=== PATIENT | female | born 1950 | race Caucasian/White ===

== ENCOUNTER → 2018-08-10 09:50 | Outpatient (BNVA) | payer OTHER, SELFPAY | PROVIDERS: Visit Provider Nurse Practitioner Adult Health | DX: G56.01 Carpal tunnel syndrome, right upper limb (principal) | CPT/HCPCS: 99203 ==

== ENCOUNTER → 2018-08-11 08:37 | Outpatient (BNVA) | payer OTHER, SELFPAY | PROVIDERS: Visit Provider Psychiatry & Neurology Neurology | DX: G56.01 Carpal tunnel syndrome, right upper limb (principal) | CPT/HCPCS: 95908 ==

== ENCOUNTER → 2018-08-16 10:35 | Outpatient (BNVA) | payer OTHER, SELFPAY | PROVIDERS: Visit Provider Orthopaedic Surgery | DX: G56.01 Carpal tunnel syndrome, right upper limb (principal); M65.4 Radial styloid tenosynovitis [de Quervain] | CPT/HCPCS: 99201; 99213 ==

== ENCOUNTER 2018-09-11 08:48 | Outpatient (CLI) | payer OTHER, SELFPAY ==
--- NOTE | 2018-09-11 09:55 | W.PREOPHP ---
Date of service: 09/11/18 Assessment and Plan (1) Extensor tenosynovitis of right wrist: Current visit: Yes Status: Acute first dorsal extensor compartment release by dr nicholson on09/13/18.for patient's carpal tunnel syndrome an ECTR will be done anatomy permitting by dr. nicholson on09/13/18,trigger fingers on right little and left long finger will also be released at same operative setting based on dr. nicholson's assesment of extent of triggering on day of surgery. The anatomy surgical procedure and typical follow-up course regarding all the surgical procedures are reviewed with Nurys during her preop visit. The anatomy surgical procedure typical postop course regarding all the surgical procedures are reviewed with the patient and her all questions are answered. (2) Trigger finger of both hands: Current visit: Yes Status: Acute (3) Carpal tunnel syndrome of right wrist: Current visit: Yes Status: Acute History of Present Illness Narrative: nurys is a lhwkl-vpxe-izhnkztf female who recently presented to Dr. Nicholson's office with 3 problems to her right hand then call the office regarding her fourth problem to her left middle finger. Problem #1 is numbness affecting her index long and ring finger that spares her little finger of 1-2 years duration. She has been tried on night bracing but wakes despite the bracing. She has noted problems with dexterity but she is not begun to drop objects at this point in time. Problem #2 is locking of her right little finger especially in the a.m. Problem #3 is radial styloid discomfort that is now improved some with the bracing for her carpal tunnel syndrome. Problem #4 is intermittent locking of her left long finger especially noticeable at night where she has to manually unlock the finger. Pertinent Surgical Information Denies previous medical history of: stroke, TIA, [place], use of sublingual nitroglycerin, GERD, seizures, diabetes, thyroid disease, sleep apnea, liver disease, hepatitis, hematologic disorders Denies previous complications from surgery or anesthesic agents with respect to high fever, prolonged vomiting and difficulty waking up Review of Systems Review of Systems All systems reviewed & are unremarkable except as noted in HPI and below Constitutional Denies fever(s) and Denies headache(s) ENT Denies headache(s) Cardiovascular Denies chest pain, Denies chest pain with activity, Denies palpitations, Denies dyspnea on exertion, Denies orthopnea and Denies paroxysmal nocturnal dyspnea Respiratory Denies dyspnea on exertion and Denies wheezing Gastrointestinal Denies abdominal pain, Denies melena, Denies hematochezia, Denies nausea and Denies vomiting Genitourinary Reports system reviewed and no additional complaints, except as docu, Reports hematuria and Reports urinary frequency Comments: Denies burning sensation with urination Musculoskeletal Reports as per HPI Neurologic Denies headache(s) Psychiatric Denies anxiety and Denies depression Endocrine Denies palpitations Comments: Denies any unplanned weight changes Allergic/Immunologic Denies wheezing PFSH Family History Father Diabetes Medical History Subarachnoid hemorrhage (Chronic) Joint pain (Chronic) Hyperlipidemia (Chronic) Dysphagia (Chronic 09/27/13) Carpal tunnel syndrome of right wrist (Acute 07/18/18) Depressive disorder Social History household members: spouse number of children: 2 pets and animals: Yes (1) pets and animals: dog(s) Smoking/Tobacco Use Status: Former Tobacco Use alcohol intake: never Surgical History Bilateral salpingectomy with oophorectomy (Resolved) Endometrial Biopsy (Resolved) Hysterectomy, Laproscopic (Resolved) Arthroplasty (12/27/14) Colonoscopy - MAC (08/17/17) Meds Home Medications Medication Instructions Recorded Confirmed Type polyethylene glycol 3350 [Miralax] 17 g PO DAILY PRN packet 05/23/14 09/11/18 History btzei-ti-7-kad-bpv-woxvglf-ast 2 ea PO DAILY 12/26/14 09/11/18 History [krill oil] mioasvpr-qbzbn-neu 2-C-D3-yesy 2 ea PO DAILY 07/06/17 09/11/18 History [Itraknpe-Ltvhoq-JJR with vit D] Multivitamin/Iron/Folic Acid 1 ea PO DAILY 07/18/17 09/11/18 History [Centrum Adults Tablet] acetaminophen [Tylenol Arthritis 650 mg PO PRN PRN 07/18/17 09/11/18 History Pain] Turmeric Root Extract [Turmeric] 538 mg PO DAILY 09/21/17 09/11/18 History pravastatin 20 mg PO DAILY #90 tab-cap 04/25/18 09/11/18 Rx diclofenac potassium 50 mg tablet 50 mg PO TID PRN #90 tab 07/28/18 09/11/18 Rx Allergies Allergy/AdvReac Type Severity Reaction Status Date / Time naproxen Allergy Severe Hives Verified 09/11/18 09:53 Sulfa (Sulfonamide Allergy Severe HIVES Verified 09/11/18 09:53 Antibiotics) Exam Const General: cooperative HENNH Throat: posterior oropharynx normal Eyes General: appearance normal, both eyes and all related structures Conjunctivae: conjunctivae normal Sclera: sclerae normal Neck Neck: no JVD Carotids: normal carotid upstroke and no bruits Resp Effort & Inspection: normal respiratory effort and able to speak in complete sentences Auscultation: clear to auscultation bilaterally, no rales, no rhonchi and no wheezes Cardio Rate: regular rate Heart Sounds: S1 normal, S2 normal and no murmurs Bruits: no abdominal aortic bruits Pulses: normal peripheral pulses Other: No pulsatile mass noted with palpation over the abdominal aorta. 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 Right little finger shows obvious triggering and locking. Right radial styloid first dorsal extensor compartment region shows marked point tenderness. Jordin's test is benign today. Exam of left middle finger shows obvious triggering and tenderness to palpation over her volar metacarpal head with occasional locking episode evident.
--- NOTE | 2018-09-11 10:28 | HPE_ITS ---
Date of service: 09/11/18 Assessment and Plan (1) Extensor tenosynovitis of right wrist: Current visit: Yes Status: Acute first dorsal extensor compartment release by dr nicholson on09/13/18. for patient's carpal tunnel syndrome an ECTR will be done anatomy permitting by dr. nicholson on09/13/18,trigger fingers on right little and left long finger will also be released at same operative setting based on dr. nicholson's assesment of extent of triggering on day of surgery. The anatomy surgical procedure and typical follow-up course regarding all the surgical procedures are reviewed with Nurys during her preop visit. The anatomy surgical procedure typical postop course regarding all the surgical procedures are reviewed with the patient and her all questions are answered. (2) Trigger finger of both hands: Current visit: Yes Status: Acute (3) Carpal tunnel syndrome of right wrist: Current visit: Yes Status: Acute History of Present Illness Narrative: nurys is a dkjva-mysj-majntjoo female who recently presented to Dr. Nicholson's office with 3 problems to her right hand then call the office regarding her fourth problem to her left middle finger. Problem #1 is numbness affecting her index long and ring finger that spares her little finger of 1-2 years duration. She has been tried on night bracing but wakes despite the bracing. She has noted problems with dexterity but she is not begun to drop objects at this point in time. Problem #2 is locking of her right little finger especially in the a.m. Problem #3 is radial styloid discomfort that is now improved some with the bracing for her carpal tunnel syndrome. Problem #4 is intermittent locking of her left long finger especially noticeable at night where she has to manually unlock the finger. Pertinent Surgical Information Denies previous medical history of: stroke, TIA, [place], use of sublingual nitroglycerin, GERD, seizures, diabetes, thyroid disease, sleep apnea, liver disease, hepatitis, hematologic disorders Denies previous complications from surgery or anesthesic agents with respect to high fever, prolonged vomiting and difficulty waking up Review of Systems Review of Systems All systems reviewed & are unremarkable except as noted in HPI and below Constitutional Denies fever(s) and Denies headache(s) ENT Denies headache(s) Cardiovascular Denies chest pain, Denies chest pain with activity, Denies palpitations, Denies dyspnea on exertion, Denies orthopnea and Denies paroxysmal nocturnal dyspnea Respiratory Denies dyspnea on exertion and Denies wheezing Gastrointestinal Denies abdominal pain, Denies melena, Denies hematochezia, Denies nausea and Denies vomiting Genitourinary Reports system reviewed and no additional complaints, except as docu, Reports hematuria and Reports urinary frequency Comments: Denies burning sensation with urination Musculoskeletal Reports as per HPI Neurologic Denies headache(s) Psychiatric Denies anxiety and Denies depression Endocrine Denies palpitations Comments: Denies any unplanned weight changes Allergic/Immunologic Denies wheezing PFSH Family History Father Diabetes Medical History Subarachnoid hemorrhage (Chronic) Joint pain (Chronic) Hyperlipidemia (Chronic) Dysphagia (Chronic 09/27/13) Carpal tunnel syndrome of right wrist (Acute 07/18/18) Depressive disorder Social History household members: spouse number of children: 2 pets and animals: Yes (1) pets and animals: dog(s) Smoking/Tobacco Use Status: Former Tobacco Use alcohol intake: never Surgical History Bilateral salpingectomy with oophorectomy (Resolved) Endometrial Biopsy (Resolved) Hysterectomy, Laproscopic (Resolved) Arthroplasty (12/27/14) Colonoscopy - MAC (08/17/17) Meds Home Medications Medication Instructions Recorded Confirmed Type polyethylene glycol 3350 [Miralax] 17 g PO DAILY PRN packet 05/23/14 09/11/18 History nauxy-qc-9-scz-ric-ipfyaim-ast 2 ea PO DAILY 12/26/14 09/11/18 History [krill oil] lrliojum-yswhy-ruo 2-C-D3-yesy 2 ea PO DAILY 07/06/17 09/11/18 History [Ztyykxuc-Ldhibm-TFA with vit D] Multivitamin/Iron/Folic Acid 1 ea PO DAILY 07/18/17 09/11/18 History [Centrum Adults Tablet] acetaminophen [Tylenol Arthritis 650 mg PO PRN PRN 07/18/17 09/11/18 History Pain] Turmeric Root Extract [Turmeric] 538 mg PO DAILY 09/21/17 09/11/18 History pravastatin 20 mg PO DAILY #90 tab-cap 04/25/18 09/11/18 Rx diclofenac potassium 50 mg tablet 50 mg PO TID PRN #90 tab 07/28/18 09/11/18 Rx Allergies Allergy/AdvReac Type Severity Reaction Status Date / Time naproxen Allergy Severe Hives Verified 09/11/18 09:53 Sulfa (Sulfonamide Allergy Severe HIVES Verified 09/11/18 09:53 Antibiotics) Exam Const General: cooperative HENWI Throat: posterior oropharynx normal Eyes General: appearance normal, both eyes and all related structures Conjunctivae: conjunctivae normal Sclera: sclerae normal Neck Neck: no JVD Carotids: normal carotid upstroke and no bruits Resp Effort & Inspection: normal respiratory effort and able to speak in complete sentences Auscultation: clear to auscultation bilaterally, no rales, no rhonchi and no wheezes Cardio Rate: regular rate Heart Sounds: S1 normal, S2 normal and no murmurs Bruits: no abdominal aortic bruits Pulses: normal peripheral pulses Other: No pulsatile mass noted with palpation over the abdominal aorta. 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 Right little finger shows obvious triggering and locking. Right radial styloid first dorsal extensor compartment region shows marked point tenderness. Jordin's test is benign today. Exam of left middle finger shows obvious triggering and tenderness to palpation over her volar metacarpal head with occasional locking episode evident.
== END 2018-09-11 09:08 ==
PROVIDERS: PCP Family Medicine; Visit Provider Orthopaedic Surgery
DX: G56.01 Carpal tunnel syndrome, right upper limb (principal); M65.4 Radial styloid tenosynovitis [de Quervain]; M65.351 Trigger finger, right little finger; M65.332 Trigger finger, left middle finger; Z01.818 Encounter for other preprocedural examination

== ENCOUNTER 2018-09-13 11:00 | Day surgery (SDC) | payer OTHER, SELFPAY ==
[2018-09-11 09:56] VITALS: BP 131/66; PULSE 64; RESP 18; TEMP 37.1; O2SAT 96
[2018-09-13 11:24] VITALS: BP 122/58; PULSE 66; RESP 16; TEMP 37.6; O2SAT 97
[2018-09-13] MEDS: Lactated Ringers 1,000 ML 80 ML IV (12:00)
[2018-09-13] MEDS: Lidocaine 2% Pres-Free 5 ML VIAL (13:57)
--- NOTE | 2018-09-13 14:13 | W.PM.DSUDISC ---
Discharge Plan Disposition Patient Disposition: HOME Condition: Good Discharge Details Reason For Visit: surgery Attending Provider: Ye Garcia Primary Care Provider: Cecilia Maurer Home Meds and New Rx's Prescriptions: New hydrocodone-acetaminophen 5-325 mg tablet 1 tab PO Q6H PRN (Reason: pain) Qty: 10 RF: 0 Continue polyethylene glycol 3350 [Miralax] 17 GM powder in packet 17 g PO DAILY PRN RF: 0 ejgvchhy-xmkhf-kef 2-C-D3-yesy [Yvkemmcj-Gjsfbn-GIX with vit D] 1 EACH tablet 2 ea PO DAILY RF: 0 Turmeric Root Extract [Turmeric] 538 MG capsule 538 mg PO DAILY RF: 0 pravastatin 20 MG tablet 20 mg PO DAILY Qty: 90 RF: 4 diclofenac potassium 50 mg tablet 50 mg PO TID PRN (Reason: pain) Qty: 90 RF: 0 ojgba-ly-7-mxi-dji-rstniid-ast [krill oil] 1 EACH capsule 2 ea PO DAILY RF: 0 acetaminophen [Tylenol Arthritis Pain] 650 MG tablet extended release 650 mg PO PRN PRNRF: 0 Multivitamin/Iron/Folic Acid [Centrum Adults Tablet] 1 EACH tablet 1 ea PO DAILY RF: 0 Discharge Instructions Additional Instructions: Try to elevate R hand above heart level as much as possible for next 24 hours. Bend and straighten fingers of both hands 10 times/hour when awake to prevent swelling. On L hand: remove dressings in 48 hours. May then shower or bathe and get incision wet. Leave uncovered when incision is dry and sealed. On R: Remove splint and all dressings after 5 days. May the shower or bathe and get all incisions wet. May leave all incisions uncovered when they are sealed and dry. Use both hands as much as discomfort allows. Use hydrocodone only for pain that is not relieved by tylenol. Follow up in 's office in 10-14 days. Referrals: Ye Garcia MD [ [facility] STAFF PHYSICIAN] - (f/u in 10-14 days) Equipment/Supplies: Splint Activity:: Activity as Tolerated Diet:: As Tolerated Discharge Orders Discharge Orders: Discharge Order (Routine); Ordered 09/13/18 Ordered By: Ye Garcia DS: Diagnosis Discharge Diagnosis (1) Trigger finger of both hands: Start date: 09/13/18 Start time: 14:14 Status: Acute (2) Extensor tenosynovitis of right wrist: Start date: 09/13/18 Start time: 14:14 Status: Acute (3) Carpal tunnel syndrome of right wrist: Start date: 09/13/18 Start time: 14:14 Status: Acute
[2018-09-13 15:04] VITALS: BP 127/65; PULSE 60; RESP 16; TEMP 36.3; O2SAT 94
--- NOTE | 2018-09-13 21:10 | ROE_ITS ---
DATE OF PROCEDURE: September 13, 2018 PREOPERATIVE DIAGNOSES: #1. Carpal tunnel syndrome, right. #2. De Quervain's tendinitis, right wrist. #3. Trigger right little finger. #4. Trigger left middle finger. POSTOPERATIVE DIAGNOSES: Same. PROCEDURES: #1. Endoscopic carpal tunnel release on the right. #2. Tendon sheath incision at radial styloid for de Quervain's tendinitis on the right. #3. Tendon sheath incision for release of trigger right little finger. #4. Tendon sheath incision for release of trigger left middle finger. SURGEON: Ye Garcia M.D. ANESTHESIA: #1. IV regional for the right-sided procedures. #2. Local infiltration 2% Xylocaine solution and 0.5% Marcaine with epinephrine solution to the left middle finger. INDICATIONS: This is a 67-year-old white female who presents with multiple problems. First, she has carpal tunnel syndrome that has not responded to conservative treatment. The diagnosis has been con firmed with nerve conduction studies. She has not responded to night splinting. Endoscopic carpal t unnel release was recommended for alleviate her symptoms on a permanent basis. The second problem is she was noted to have de Quervain's tendinitis of her right wrist. This has been bothering her for several months. She wished to have the problem corrected at the same time she was having her carpal tunnel release. I told her we could do this. She also has had a several-month history of painful lo cking of her right little finger and left middle finger. She inquired about trigger finger releases under the same operative setting and I agreed to do this. The risks and complications of the procedu re were explained to the patient in detail preoperatively. PROCEDURE: The patient was taken to the Operating Room on 09/13/18. She was placed supine on the op erating table. An IV regional anesthetic was administered to the right upper extremity. Once good a nesthesia was obtained, the right hand, wrist, and forearm were prepped and draped free in the usual sterile fashion. I made a transverse incision beginning over the flexor carpi radialis at the flexor carpi radialis tendon. I extended it to the flexor carpi ulnaris tendon in line with the proximal f lexion crease of the wrist. The incision was carried down into the fascia and subcutaneous veins wer e cauterized. A distally-based fascial flap was then used to gain access to the carpal canal. A syn ovial reflector was then used to free synovium from the underside of the volar carpal ligament and a series of obturators were introduced to make room for the endoscope. The Ginna endoscope blade device was then inserted in the carpal canal and advanced until the distal edge of the volar carpal ligamen t was clearly visualized. At this point the trigger was depressed, elevating the blade, and the elev ator blade was then brought out from distal to proximal through the incision, transecting the volar c arpal ligament and decompressing the median nerve. I then performed a subcutaneous fasciotomy in a p roximal direction from the incision of about 2 inches using Littler scissors. The wound margins were infiltrated with 0.5% Marcaine with epinephrine solution and the skin edges were approximated with t wo horizontal mattress sutures of #4-0 nylon suture material. I then made a longitudinal incision over the first dorsal extensor compartment at the radial styloid. The incision was 2-1/2 inches in length. The incision was carried down to the subcu. Blunt-tipped Littler scissors were then used to mobilize the terminal branches of the superficial radial nerve aw ay from the first dorsal extensor compartment sheath. Under direct vision, I incised the sheath. It was markedly hypertrophies and thickened. There were a couple of areas where the tendons were adher ent to the sheath from scarring. A synovectomy was performed using a rongeur so that the tendons wer e gliding smoothly without any adhesions. Exploring the first dorsal extensor compartment completely showed no separate compartment within the first dorsal extensor compartment. The hypertrophied thic kened sheath of the radial styloid was excised. The wound margins were infiltrated with 0.5% Marcain e with epinephrine solution and the skin edges were approximated with interrupted #4-0 nylon sutures. I made a transverse incision over the proximal everette of the flexor sheath of the right little finger . It was just a few millimeters distal to the distal palmar flexion crease. The incision was about 2 cm. The incision was carried down through the subcu. Blunt-tipped Littler scissors were then used to mobilize the soft tissue away from the flexor sheath. Retractors were inserted and the flexor sh eath proximal everette was clearly visualized. I incised the proximal everetet of the flexor sheath in t he midline and completed the incision the entire length of the proximal everette. The wound margins we re infiltrated with 0.5% Marcaine with epinephrine solution and the skin edges were approximated with a few interrupted #4-0 nylon sutures. Sterile dressings were applied to all three incisions. The i ncisions were dressed with Xeroform gauze, sterile gauze 4x4s, wrapped with a Kerlix bandage, and the n wrapped with a 3-inch Reagan bandage. A commercial cock-up wrist splint was applied over the dressing s. A radial thumb spica splint was applied on the right. The patient's IV regional anesthesia was t hen reversed without complications. Attention was turned to the left hand. I prepped the left hand with chlorhexidine and draped it with sterile towels. I infiltrated over the proximal everette of the left middle finger flexor sheath with 1% xylocaine solution. A transverse incision was made over the proximal everette about 2 cm in length . The incision was carried down through the subcu. Blunt-tipped Littler scissors were then used to mobilize soft tissues away from the proximal everette of the flexor sheath of the left middle finger. Retractors were inserted and then I incised the entire length of the proximal everette under direct vis ion, freeing the flexor tendons. The wound margins were infiltrated with 0.5% Marcaine with epinephr ine solution and the skin edges were approximated with a couple of interrupted #4-0 nylon sutures. T he wound was dressed with Xeroform gauze, sterile gauze 4x4, and then wrapped with a 2-inch Quinn ban dage. The patient was discharged to Recovery in good condition. The patient was discharged home from the Day Surgery Unit when fully recovered from her IV regional a nesthesia. She was given instructions to elevate her right hand above heart level as much as possibl e for the next 24 to 48 hours. She is encouraged to wiggle her fingers of both hands 10 times an steven r while awake to prevent swelling. On her left hand, she may remove her dressings, shower and get he r incision wet after 48 hours. She can leave the incision uncovered when it is dry and sealed. On t he right hand, she is to keep the splint and dressings dry for five days. After five days, she is to remove the splint and the dressings and begin to move her right wrist. She may shower or bathe and get all the incisions on the right hand wet after she removes her dressing in five days. She can missy ve the incisions uncovered when they are dry and sealed. She is given a prescription for swelling an d inflammation of ibuprofen 800 mg p.o. t.i.d. for 10 days. She is given a prescription for breakthr ough pain of hydrocodone/APAP 5 mg/325 mg, 1 tablet every 6 hours as needed. She will follow up in Trung Garcia's office in 10 to 14 days.
== END 2018-09-13 15:46 | disposition home or self-care (01) ==
PROVIDERS: PCP Family Medicine; Visit Provider Orthopaedic Surgery
PROC: 01N54ZZ Release Median Nerve, Percutaneous Endoscopic Approach (ICD-10-PCS; CPT 29848; principal; 2018-09-13 12:45)
PROC: (CPT 25000; 2018-09-13 12:45)
PROC: (CPT 26055; 2018-09-13 12:45)
DX: G56.01 Carpal tunnel syndrome, right upper limb (principal); M65.4 Radial styloid tenosynovitis [de Quervain]; M65.351 Trigger finger, right little finger; M65.332 Trigger finger, left middle finger
CPT/HCPCS: 25000; 26055 ×2; 29848; J0690; J1885; J2250; J3010

== ENCOUNTER → 2018-09-26 10:40 | Outpatient (BNVA) | payer OTHER, SELFPAY | PROVIDERS: PCP Family Medicine; Referring Provider Family Medicine; Visit Provider Orthopaedic Surgery | DX: Z47.89 Encounter for other orthopedic aftercare (principal); G56.01 Carpal tunnel syndrome, right upper limb; M65.4 Radial styloid tenosynovitis [de Quervain]; M65.331 Trigger finger, right middle finger; M65.332 Trigger finger, left middle finger ==

== ENCOUNTER 2018-09-26 12:22 | Outpatient (CLI) | payer OTHER, SELFPAY ==
[2018-09-26 14:13] LABS: ALT 45 U/L (12-78); AST 23 U/L (15-37); Albumin 4.2 g/dL (3.4-5.0); Alkaline Phosphatase 91 U/L (46-116); Anion Gap 9.2 mmol/L (3-11); BUN 18 mg/dL (7-18); Bilirubin, Total 0.4 mg/dL (0.2-1.0); CO2 28.8 mmol/L (21.0-32.0); Calcium 9.5 mg/dL (8.5-10.1); Chloride 100 mmol/L (98-107); Glucose 94 mg/dL (70-100); Potassium 4.6 mmol/L (3.5-5.1); Sodium 138 mmol/L (136-145); Total Protein 7.3 g/dL (6.4-8.2)
== END 2018-09-26 12:42 ==
PROVIDERS: PCP Family Medicine; Visit Provider Family Medicine
DX: E78.5 Hyperlipidemia, unspecified (principal)
CPT/HCPCS: 36415; 80053

== ENCOUNTER 2019-06-21 01:21 | Outpatient (CLI) | payer OTHER, SELFPAY ==
[2019-06-21 13:44] LABS: TSH (W/Ref FT4) 4.42 uIU/mL (0.36-3.74)
[2019-06-21 14:09] LABS: FREE T4 0.79 ng/dL (0.76-1.46)
== END 2019-06-21 01:41 ==
PROVIDERS: PCP Family Medicine; Visit Provider Family Medicine
DX: L65.9 Nonscarring hair loss, unspecified (principal)
CPT/HCPCS: 36415; 84439; 84443

== ENCOUNTER 2019-10-24 02:19 | Outpatient (CLI) | payer OTHER, SELFPAY ==
[2019-10-24 13:26] LABS: Anion Gap 7.4 mmol/L (3-11); BUN 17 mg/dL (7-18); CO2 30.6 mmol/L (21.0-32.0); Calcium 9.1 mg/dL (8.5-10.1); Calculated LDL 140 mg/dL; Chloride 106 mmol/L (98-107); Cholesterol 213 mg/dL (<200); Ferritin 285 ng/mL (8-252); Glucose 95 mg/dL (74-106); HDL Cholesterol 53 mg/dL (40-60); Potassium 5.3 mmol/L (3.5-5.1); Sodium 144 mmol/L (136-145); TSH 4.85 uIU/mL (0.36-3.74); Triglyceride 102 mg/dL (<150)
== END 2019-10-24 02:39 ==
PROVIDERS: PCP Family Medicine; Visit Provider Family Medicine
DX: E78.5 Hyperlipidemia, unspecified (principal); R53.83 Other fatigue; R79.89 Other specified abnormal findings of blood chemistry
CPT/HCPCS: 36415; 80048; 80061; 82728; 84443

== ENCOUNTER 2019-12-05 00:33 | Outpatient (CLI) | payer OTHER, SELFPAY ==
--- NOTE | 2019-12-05 11:07 | DI.MAMMO_ITS ---
EXAM: MG MAMMO SCREENING CLINICAL HISTORY: screening Z12.39. TECHNIQUE: Bilateral full field digital CC and MLO mammographic images were obtained with 3D tomosyn thesis and utilizing computer aided detection (CAD). COMPARISON: Available for comparison. FINDINGS: Masses/Architectural Distortion: None seen. Microcalcifications: No suspicious pleomorphic-type are seen. Skin Thickening/Nipple Retraction: None. IMPRESSION: 1. No significant interval change with no specific features of malignancy noted. 2. Unless there is more urgent need, screening mammography is recommended, as per [employer] guidelines. ACR BI-RAD Category- 1 Negative Breast Density - Category B - Scattered areas of fibroglandular density A negative radiographic report should not delay biopsy if a dominant or clinically suspicious mass is present. Up to ten percent of cancers are not identified on mammography. A negative report may reinforce clinical impression. Adenosis and dense breasts may obscure an underlying neoplasm. False positive reports average 6 to 10%. Patient will receive a letter notifying them of these results.
== END 2019-12-05 00:53 ==
PROVIDERS: PCP Family Medicine; Visit Provider Family Medicine
DX: Z12.31 Encounter for screening mammogram for malignant neoplasm of breast (principal)
CPT/HCPCS: 77063; 77067

== ENCOUNTER 2020-01-10 00:06 | Outpatient (CLI) | payer OTHER, SELFPAY ==
[2020-01-10 14:57] LABS: TSH 1.39 uIU/mL (0.36-3.74)
== END 2020-01-10 00:26 ==
PROVIDERS: PCP Family Medicine; Visit Provider Family Medicine
DX: E03.9 Hypothyroidism, unspecified (principal)
CPT/HCPCS: 36415; 84443

== ENCOUNTER 2020-04-10 04:27 | Outpatient (CLI) | payer OTHER, SELFPAY ==
[2020-04-10 16:03] LABS: TSH (W/Ref FT4) 4.19 uIU/mL (0.36-3.74)
[2020-04-10 18:00] LABS: FREE T4 1.11 ng/dL (0.76-1.46)
[2020-04-11 16:37] LABS: T3, Total 106 ng/dL (97-169)
== END 2020-04-10 04:47 ==
PROVIDERS: PCP Family Medicine; Visit Provider Family Medicine
DX: E03.9 Hypothyroidism, unspecified (principal)
CPT/HCPCS: 36415; 84439; 84443; 84480

== ENCOUNTER 2020-09-30 12:45 | Outpatient (CLI) | payer OTHER, SELFPAY ==
--- NOTE | 2020-09-30 11:15 | DI.RAD_ITS ---
EXAM: XR KNEE LT 3V AP,LAT,KEENAN CLINICAL HISTORY: Left knee pain. TECHNIQUE: 2D digital imaging was performed. COMPARISON: No previous for comparison. FINDINGS: BONES: No acute fracture is present. No bony destructive lesion is seen. JOINTS: The knee is normally aligned. Small joint effusion. Small osteophyte at the posterior patell a. SOFT TISSUE: Normal. IMPRESSION: Mild degenerative changes of the knee. DATA REPOSITORY: RADIATION DOSE DELIVERED:
== END 2020-09-30 13:05 ==
PROVIDERS: PCP Family Medicine; Referring Provider Family Medicine; Visit Provider Student in an Organized Health Care Education/Training Program
DX: M17.12 Unilateral primary osteoarthritis, left knee (principal); M25.562 Pain in left knee; M22.42 Chondromalacia patellae, left knee; M23.92 Unspecified internal derangement of left knee
CPT/HCPCS: 73562; 99203; 99214

== ENCOUNTER 2020-11-18 03:17 | Outpatient (CLI) | payer OTHER, SELFPAY ==
[2020-11-18 12:25] LABS: Calculated LDL 165 mg/dL (<100); Cholesterol 261 mg/dL (<200); HDL Cholesterol 54 mg/dL (40-60); TSH 4.03 uIU/mL (0.36-3.74); Triglyceride 211 mg/dL (<150)
== END 2020-11-18 03:37 ==
PROVIDERS: PCP Family Medicine; Visit Provider Family Medicine
DX: E03.9 Hypothyroidism, unspecified (principal); E78.5 Hyperlipidemia, unspecified
CPT/HCPCS: 36415; 80061; 84443

== ENCOUNTER 2021-01-14 01:22 | Outpatient (CLI) | payer OTHER, SELFPAY ==
--- NOTE | 2021-01-14 11:52 | DI.MAMMO_ITS ---
EXAM: MG MAMMO SCREENING CLINICAL HISTORY: screening,Z12.39. TECHNIQUE: Bilateral full field digital CC and MLO mammographic images were obtained with 3D tomosyn thesis and utilizing computer aided detection (CAD). COMPARISON: Prior mammograms dating back to 2010, the most recent being . FINDINGS: There are no CAD designations. No new significant radiograph findings in left breast. In the right breast 3D MLO imaging there is a lobulated nodule posteriorly seen located approximately 10 centimetres in from the nipple. Unchanged from prior studies and probably benign lymph node. Th ere are no new spiculated masses nor malignant-appearing microcalcification groups in either breast. There is no significant architectural distortion nor skin thickening-retraction. IMPRESSION: Stable benign findings. No radiographic evidence of malignancy. BI-RADS Category 2 - Benign Findings Breast Density - Category B - Scattered areas of fibroglandular density Breast density Category C or D implies that the patient has dense breast tissue. Dense breast tissue can make it harder to find cancer on a mammogram. Dense breast tissue is also associated with an incr eased risk of breast cancer. This information about the result of the mammogram report was provided to the patient to raise their awareness. Use this report when you speak with the patient about their risks for breast cancer, which includes their family history. At that time, you may recommend additional screening tests (Ultrasoun d or MRI) as these tests may add significant information. A negative radiographic report should not delay biopsy if a dominant or clinically suspicious mass is present. Up to ten percent of cancers are not identified on mammography. A negative report may reinforce clinical impression. Adenosis and dense breasts may obscure an underlying neoplasm. False positive reports average 6 to 10%. Patient will receive a letter notifying them of these results.
== END 2021-01-14 01:23 ==
LOC: DI 01:22
PROVIDERS: PCP Family Medicine; Visit Provider Family Medicine
DX: Z12.31 Encounter for screening mammogram for malignant neoplasm of breast (principal)
CPT/HCPCS: 77063; 77067

== ENCOUNTER 2021-06-01 03:07 | Outpatient (CLI) | payer OTHER, SELFPAY ==
[2021-06-01 12:50] LABS: Calculated LDL 97 mg/dL (<100); Cholesterol 164 mg/dL (<200); HDL Cholesterol 57 mg/dL (40-60); TSH 2.81 uIU/mL (0.36-3.74); Triglyceride 50 mg/dL (<150)
== END 2021-06-01 03:08 | disposition home or self-care (01) ==
LOC: LOS 03:07
PROVIDERS: PCP Family Medicine; Visit Provider Family Medicine
DX: E03.9 Hypothyroidism, unspecified (principal); E78.5 Hyperlipidemia, unspecified
CPT/HCPCS: 36415; 80061; 84443

== ENCOUNTER 2021-12-07 02:17 | Outpatient (CLI) | payer MEDICARE, SELFPAY ==
[2021-12-07 12:33] LABS: Calculated LDL 191 mg/dL (<100); Cholesterol 271 mg/dL (<200); HDL Cholesterol 66 mg/dL (40-60); Triglyceride 74 mg/dL (<150)
== END 2021-12-07 02:18 | disposition home or self-care (01) ==
LOC: LBO 02:17
PROVIDERS: PCP Family Medicine; Visit Provider Family Medicine
DX: E78.5 Hyperlipidemia, unspecified (principal)
CPT/HCPCS: 36415; 80061

== ENCOUNTER 2022-01-14 17:59 | Outpatient (REF) | payer MEDICARE, SELFPAY | END 2022-01-14 18:00 | disposition home or self-care (01) | LOC: LBN 17:59 | PROVIDERS: PCP Family Medicine; Visit Provider Nurse Practitioner Family | DX: R39.15 Urgency of urination (principal) | CPT/HCPCS: 87086 ==

== ENCOUNTER 2022-02-11 16:42 | Outpatient (REF) | payer MEDICARE, SELFPAY | END 2022-02-11 16:43 | disposition home or self-care (01) | LOC: LBN 16:42 | PROVIDERS: PCP Family Medicine; Visit Provider Nurse Practitioner Family | DX: N95.2 Postmenopausal atrophic vaginitis (principal) | CPT/HCPCS: 87480; 87510; 87660 ==

== ENCOUNTER 2022-03-02 15:52 | Outpatient (REF) | payer MEDICARE, SELFPAY ==
[2022-03-04 11:27] LABS: COVID-19 RT-PCR UVMMC Result Negative (Negative)
== END 2022-03-02 15:53 | disposition home or self-care (01) ==
LOC: LBN 15:52
PROVIDERS: PCP Family Medicine; Visit Provider Family Medicine
DX: Z20.822 Contact with and (suspected) exposure to COVID-19 (principal); R09.81 Nasal congestion
CPT/HCPCS: U0003; U0005

== ENCOUNTER 2022-03-22 02:04 | Outpatient (CLI) | payer MEDICARE, SELFPAY | END 2022-03-22 02:05 | disposition home or self-care (01) | LOC: LBO 02:04 | PROVIDERS: PCP Student in an Organized Health Care Education/Training Program; Visit Provider Family Medicine ==

== ENCOUNTER 2022-03-25 03:34 | Outpatient (CLI) | payer MEDICARE, SELFPAY ==
[2022-03-25 13:02] LABS: ALT 26 U/L (14-59); AST 14 U/L (15-37); Albumin 3.9 g/dL (3.4-5.0); Alkaline Phosphatase 86 U/L (46-116); Anion Gap 4.6 mmol/L (3-11); BUN 15 mg/dL (7-18); Bilirubin, Total 0.4 mg/dL (0.2-1.0); CO2 30.4 mmol/L (21.0-32.0); CREATININE 0.4 mg/dL (0.55-1.02); Chloride 104 mmol/L (98-107); Creatine Kinase 76 U/L (26-192); Glucose 96 mg/dL (74-106); Potassium 4.3 mmol/L (3.5-5.1); Sodium 139 mmol/L (136-145); Total Protein 6.8 g/dL (6.4-8.2)
[2022-03-25 13:26] LABS: Calculated LDL 191 mg/dL (<100); Cholesterol 284 mg/dL (<200); HDL Cholesterol 51 mg/dL (40-60); Triglyceride 214 mg/dL (<150)
== END 2022-03-25 03:35 | disposition home or self-care (01) ==
LOC: LOS 03:34
PROVIDERS: PCP Student in an Organized Health Care Education/Training Program; Visit Provider Family Medicine
DX: I10 Essential (primary) hypertension (principal); E78.5 Hyperlipidemia, unspecified
CPT/HCPCS: 36415; 80053; 80061; 82550

== ENCOUNTER → 2022-04-23 02:00 | Outpatient (CLI) | payer MEDICARE, SELFPAY | PROVIDERS: PCP Student in an Organized Health Care Education/Training Program; Visit Provider Family Medicine ==

== ENCOUNTER 2022-07-30 01:42 | Outpatient (CLI) | payer MEDICARE, SELFPAY ==
[2022-07-30 12:50] LABS: Anion Gap 6.3 mmol/L (3-11); BUN 13 mg/dL (7-18); CO2 30.7 mmol/L (21.0-32.0); CREATININE 0.6 mg/dL (0.55-1.02); Calcium 8.7 mg/dL (8.5-10.1); Calculated LDL 192 mg/dL (<100); Chloride 104 mmol/L (98-107); Cholesterol 280 mg/dL (<200); Glucose 91 mg/dL (74-106); HDL Cholesterol 54 mg/dL (40-60); Potassium 4.2 mmol/L (3.5-5.1); Sodium 141 mmol/L (136-145); Triglyceride 170 mg/dL (<150)
[2022-07-30 13:08] LABS: FREE T4 0.77 ng/dL (0.76-1.46)
== END 2022-07-30 01:43 | disposition home or self-care (01) ==
LOC: LBO 01:42
PROVIDERS: PCP Student in an Organized Health Care Education/Training Program; Visit Provider Student in an Organized Health Care Education/Training Program
DX: F19.90 Other psychoactive substance use, unspecified, uncomplicated (principal); R79.89 Other specified abnormal findings of blood chemistry; E78.5 Hyperlipidemia, unspecified
CPT/HCPCS: 36415; 80048; 80061; 84439; 84443

== ENCOUNTER → 2022-07-30 15:20 | Outpatient (CLI) | payer MEDICARE, SELFPAY ==
--- NOTE | 2022-07-30 11:45 | DI.RAD_ITS ---
Exam(s) XR SACRUM COCCYX EXAM: XR SACRUM COCCYX CLINICAL HISTORY: evaluate pain, coccyx, r/o bony path, FALL, W19.XXXA, M54.9. TECHNIQUE: 2D digital imaging was performed. Three images were obtained. COMPARISON: No exams were available for comparison FINDINGS: BONES: No acute fracture is present. No bony destructive lesion is seen. JOINTS: No dislocation present. SOFT TISSUE: Normal. IMPRESSION: There is no acute fracture or dislocation. DATA REPOSITORY: RADIATION DOSE DELIVERED:
--- NOTE | 2022-07-30 11:52 | DI.RAD_ITS ---
Exam(s) XR LUMBAR SPINE COMPLETE EXAM: XR LUMBAR SPINE COMPLETE CLINICAL HISTORY: evaluate curvature, r/o bony path, post fall, LOWER BACK PAIN, W19.XXXA,. TECHNIQUE: 2D digital imaging was performed of the lumbar spine. Four images were obtained. AP, la teral, right oblique, and left oblique views were obtained. COMPARISON: No previous for comparison. FINDINGS: BONES: No fracture or destructive lesion. Vertebral bodies are unremarkable. Degenerative changes of the facets are seen at L5-S1. DISKS: There is disc space narrowing at L2-L3. ALIGNMENT: There is a right convex curvature of the spine. There is grade 1 pseudo spondylolisthesis of L4 on L5. No spondylolysis. SOFT TISSUE: There is a large amount of stool in the colon. This may represent constipation. IMPRESSION: 1. Mild degenerative changes in the lumbar spine. 2. No acute fracture or subluxation in the lumbar spine. DATA REPOSITORY: RADIATION DOSE DELIVERED:
== END ==
PROVIDERS: PCP Student in an Organized Health Care Education/Training Program; Visit Provider Student in an Organized Health Care Education/Training Program
DX: M47.816 Spondylosis without myelopathy or radiculopathy, lumbar region (principal); W19.XXXA Unspecified fall, initial encounter
CPT/HCPCS: 72110; 72220

== ENCOUNTER 2022-12-31 00:42 | Outpatient (CLI) | payer MEDICARE, SELFPAY ==
--- NOTE | 2022-12-31 07:45 | DI.DEXA_ITS ---
Exam(s) XR DEXA BONE DENSITY W/WO ROBI EXAM: XR DEXA BONE DENSITY W/WO ROBI CLINICAL HISTORY: smoker,screening for osteoporosis in postmenopausal woman,z78.0 TECHNIQUE: COMPARISON: No exams were available for comparison FINDINGS: Lateral Spine Image: Unremarkable. No compression deformities identified. Left hip: Total T-Score: -0.8 Total Z-Score: 0.7 T- and Z-scores: Within normal limits. Lumbar Spine: Total T-Score: 0.3 Total Z-Score: 2.5 T- and Z-scores: Within normal limits. IMPRESSION: No evidence of osteoporosis.
== END 2022-12-31 01:02 ==
LOC: DI 00:44
PROVIDERS: PCP Student in an Organized Health Care Education/Training Program; Visit Provider Student in an Organized Health Care Education/Training Program
DX: Z78.0 Asymptomatic menopausal state (principal); Z13.820 Encounter for screening for osteoporosis; Z87.891 Personal history of nicotine dependence
CPT/HCPCS: 77080

== ENCOUNTER 2023-03-09 03:02 | Outpatient (CLI) | payer MEDICARE, SELFPAY ==
[2023-03-09 14:06] LABS: FREE T4 0.72 ng/dL (0.76-1.46)
[2023-03-13 19:02] LABS: Lab Add On Test DONE
[2023-03-14 17:29] LABS: T3, Total 105 ng/dL (97-169)
== END 2023-03-09 03:03 | disposition home or self-care (01) ==
LOC: LBO 03:02
PROVIDERS: Absent Provider Student in an Organized Health Care Education/Training Program; PCP Student in an Organized Health Care Education/Training Program; Visit Provider Student in an Organized Health Care Education/Training Program
DX: E03.9 Hypothyroidism, unspecified (principal)
CPT/HCPCS: 36415; 84439; 84443; 84480

== ENCOUNTER 2023-09-16 01:56 | Outpatient (CLI) | payer MEDICARE, SELFPAY ==
[2023-09-16 12:12] LABS: HCT 39.2 % (36.0-46.0); HGB 12.9 g/dL (11.2-15.7); MCH 29.8 pg (27.0-33.0); MCHC 32.9 % (32.0-36.0); MCV 91 fL (80-95); MPV 10.8 fL (8.0-11.0); Platelet Count 320 10^3/uL (130-400); RBC 4.33 10^6/uL (3.93-5.22); RDW 13.9 % (11.7-14.6); RDW-SD 46.5 fL; WBC 4.63 10^3/uL (4.4-10.8)
[2023-09-16 12:32] LABS: ALT 27 U/L (14-59); AST 15 U/L (15-37); Alkaline Phosphatase 85 U/L (46-116); Anion Gap 7.6 mmol/L (3-11); BUN 11 mg/dL (7-18); Bilirubin, Total 0.3 mg/dL (0.2-1.0); CO2 28.4 mmol/L (21.0-32.0); CREATININE 0.7 mg/dL (0.55-1.02); Calculated LDL 182 mg/dL (<100); Chloride 106 mmol/L (98-107); Cholesterol 287 mg/dL (<200); Estimated GFR 92.98 (mL/min/1.73m2); Glucose 98 mg/dL (74-106); HDL Cholesterol 46 mg/dL (40-60); Potassium 4.2 mmol/L (3.5-5.1); Sodium 142 mmol/L (136-145); Total Protein 7.3 g/dL (6.4-8.2); Triglyceride 296 mg/dL (<150)
[2023-09-16 12:45] LABS: Vitamin D 25 Total 43.6 ng/mL (30-100)
== END 2023-09-16 01:57 | disposition home or self-care (01) ==
LOC: LOS 01:56
PROVIDERS: PCP Student in an Organized Health Care Education/Training Program; Visit Provider Student in an Organized Health Care Education/Training Program
DX: E03.9 Hypothyroidism, unspecified (principal); Z13.220 Encounter for screening for lipoid disorders; Z13.1 Encounter for screening for diabetes mellitus; Z91.89 Other specified personal risk factors, not elsewhere classified; Z86.2 Personal history of diseases of the blood and blood-forming organs and certain disorders involving the immune mechanism; M81.0 Age-related osteoporosis without current pathological fracture
CPT/HCPCS: 36415; 80053; 80061; 82306; 85027; 84439; 84443

== ENCOUNTER 2023-12-21 04:22 | Outpatient (CLI) | payer MEDICARE, SELFPAY ==
[2023-12-21 13:16] LABS: Calculated LDL 194 mg/dL (<100); Cholesterol 278 mg/dL (<200); HDL Cholesterol 55 mg/dL (40-60); Triglyceride 145 mg/dL (<150)
== END 2023-12-21 04:23 | disposition home or self-care (01) ==
LOC: LBO 04:22
PROVIDERS: PCP Student in an Organized Health Care Education/Training Program; Visit Provider Student in an Organized Health Care Education/Training Program
DX: E78.1 Pure hyperglyceridemia (principal); Z86.73 Personal history of transient ischemic attack (TIA), and cerebral infarction without residual deficits
CPT/HCPCS: 36415; 80061

== ENCOUNTER 2025-03-14 02:20 | Outpatient (CLI) | payer MEDICARE, SELFPAY ==
[2025-03-14 12:15] LABS: Anion Gap 8.6 mmol/L (3-11); BUN 13 mg/dL (7-18); CO2 29.4 mmol/L (21.0-32.0); CREATININE 0.7 mg/dL (0.55-1.02); Calcium 9.1 mg/dL (8.5-10.1); Chloride 105 mmol/L (98-107); Estimated GFR 91.83 (mL/min/1.73m2); Glucose 94 mg/dL (74-106); Potassium 4.1 mmol/L (3.5-5.1); Sodium 143 mmol/L (136-145); TSH (W/Ref FT4) 4.11 uIU/mL (0.36-3.74)
[2025-03-14 12:56] LABS: FREE T4 0.74 ng/dL (0.76-1.46)
[2025-03-14 13:40] LABS: Calculated LDL 168 mg/dL (<100); Cholesterol 259 mg/dL (<200); HDL Cholesterol 53 mg/dL (>or=50); Triglyceride 190 mg/dL (<150)
== END 2025-03-14 02:21 | disposition home or self-care (01) ==
PROVIDERS: PCP Family Medicine; Referring Provider Family Medicine; Visit Provider Family Medicine
DX: I10 Essential (primary) hypertension (principal); Z13.220 Encounter for screening for lipoid disorders; R79.89 Other specified abnormal findings of blood chemistry
CPT/HCPCS: 36415; 80048; 80061; 84439; 84443

== ENCOUNTER 2025-06-07 00:33 | Outpatient (CLI) | payer MEDICARE, SELFPAY ==
--- NOTE | 2025-06-07 07:30 | DI.MRI_ITS ---
Exam(s) MR LUMBAR SPINE WO EXAM: MR LUMBAR SPINE WO CLINICAL HISTORY: LOW BACK PAIN,M54.50. TECHNIQUE: Multiplanar multisequence MRI of the Lumbar spine was performed. COMPARISON: CR XR LUMBAR SPINE COMPLETE from 07/30/2022 FINDINGS: Conus medullaris is at L1 level. There is no evidence of conus mass nor subjacent clumping of intrathecal nerve roots to suggest arachnoiditis. 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 No other findings in the sacral canal. Bones:There are no fractures nor ominous osseous lesions in the lumbar vertebral bodies and visualized sacrum. There is degenerative scoliosis convex right, as was also evident on plain films of July 2022. There are Modic type 1 sub endplate marrow edema changes on the left side of the L2-3 level. With respect to the disc space individual levels... T12-L1: Mild disc space narrowing. No disc herniation or central canal stenosis. No significant foraminal stenosis. L1-2: Mild disc space narrowing evident on the right side of the disc space. No evidence of disc herniation or central canal stenosis. No foraminal stenosis. No significant facet arthropathy. L2-3: This level exhibits asymmetric disc space narrowing on the left side where there are Modic type 1 sub endplate marrow edema changes, this being the epicenter of the scoliosis. There is relatively symmetrical annular bulging at this level which extends into the floor both exiting neural foramina and there is a central subligamentous mild disc protrusion. There is moderate central spinal canal stenosis at this level due to the broad annular bulging and short AP dimensions of the pedicles. There are moderate degenerative changes in the facet joints. There is moderate foraminal stenosis on the left side due to the asymmetric disc height loss. L3-4: This level also exhibits moderately asymmetric disc space narrowing on the left side but without significant Modic type sub endplate marrow edema changes. There is very mild degenerative anterolisthesis of L3 upon L4. There is moderate central spinal canal stenosis due to broad annular bulging, short AP dimensions the pedicles and moderate-severe facet arthrosis bilaterally. The annular bulging extends into the floor both exiting neural foramina but there does not appear to be significant foraminal stenosis on the right side and only mild foraminal stenosis on the left side. This is due to the asymmetric disc height loss on the left side of this disc space. L4-5: This level exhibits moderate relatively uniform disc height loss. There is grade 1 anterolisthesis of L4 upon L5 related to severe facet arthropathy as there are advanced degenerative changes in both facet joints at this level. There is no disc herniation but there is moderate canal stenosis due to the listhesis and annular bulging and short AP dimensions of the pedicles as well as facet arthropathy. There is minimal if any foraminal stenosis at this level despite the above described findings this level. L5-S1: This level exhibits preserved disc height and signal. There is no disc herniation or central canal stenosis at this level. There is also no significant foraminal stenosis at this level. There are mild degenerative changes in the facet joints. Soft tissues: paraspinal soft tissues appear unremarkable. IMPRESSION: 1. Multilevel findings at L2-3, L3-4 and L4-5 levels as described individually above with moderate multilevel central spinal canal stenosis at these levels. 2. There is asymmetric foraminal stenosis on the left side at L2-3 and L3-4 levels, this mostly related to the asymmetric disc height loss on the left side at these levels. 3. Multilevel facet arthrosis most prominent at L3-4 and L4-5 levels. 4. There is grade 1 degenerative anterolisthesis of L4 upon L5 related to the advanced facet arthrosis at this level. There are no pars defects evident. Chronic degenerative scoliosis convex right, as was also evident on plain films of July 2022. DATA REPOSITORY:
== END 2025-06-07 00:53 ==
LOC: DI 00:33
PROVIDERS: PCP Family Medicine; Visit Provider Family Medicine
DX: M48.061 Spinal stenosis, lumbar region without neurogenic claudication (principal); M41.86 Other forms of scoliosis, lumbar region
CPT/HCPCS: 72148